=== PATIENT | female | born 1985 | race African-American/Black ===

== ENCOUNTER 2025-01-07 14:15 | Emergency (ER) | payer MEDICAID ==
[~2025-01-07] VITALS: Ht 172.7 cm; Wt 75.0 kg
[2025-01-07 14:16] VITALS: TEMP 98.8
[2025-01-07] MEDS ORDERED: QUET100T PO (14:18)
[2025-01-07 14:31] VITALS: BP 118/72; PULSE 98; RESP 16; O2SAT 99
== END 2025-01-07 16:14 | disposition home or self-care (01) ==
LOC: EMS 14:27
DX: L02.31 Cutaneous abscess of buttock (principal); F32.A Depression, unspecified; Z79.899 Other long term (current) drug therapy
CPT/HCPCS: 10060; 99282; Z7502

== ENCOUNTER 2025-01-09 16:10 | Emergency (ER) | payer MEDICAID ==
[~2025-01-09] VITALS: Ht 167.6 cm; Wt 81.8 kg
[~2025-01-09 16:10] MED LIST: QUET100T PO
[2025-01-09] MEDS ORDERED: antibiotic PO (16:13)
[2025-01-09] MEDS ORDERED: IBUP-45 PO (16:13)
[2025-01-09 16:15] VITALS: BP 102/72; PULSE 77; RESP 18; TEMP 98.6; O2SAT 100
== END 2025-01-09 17:01 | disposition home or self-care (01) ==
LOC: EMS 16:15
DX: Z48.01 Encounter for change or removal of surgical wound dressing (principal); F32.A Depression, unspecified; Z91.199 Patient's noncompliance with other medical treatment and regimen due to unspecified reason
CPT/HCPCS: 99281; 99282; Z7502